=== PATIENT | female | born 1980 | race Caucasian/White ===

== ENCOUNTER → 2020-10-14 13:27 | Outpatient (BNVA) | payer OTHER, SELFPAY | PROVIDERS: Visit Provider Obstetrics & Gynecology | DX: Z76.89 Persons encountering health services in other specified circumstances (principal) ==

== ENCOUNTER 2020-10-18 15:47 | Outpatient (REF) | payer OTHER, SELFPAY ==
[2020-10-19 07:27] LABS: COVID-19 Test Negative (Negative)
== END 2020-10-18 15:48 | disposition home or self-care (01) ==
LOC: HO.EMPCOV 15:47
PROVIDERS: Visit Provider Internal Medicine
DX: Z20.822 Contact with and (suspected) exposure to COVID-19 (principal)
CPT/HCPCS: 36415; 87635; C9803

== ENCOUNTER 2020-10-22 09:35 | Outpatient (REF) | payer OTHER, SELFPAY ==
[2020-10-22 10:18] LABS: COVID-19 Test Negative (Negative)
== END 2020-10-22 09:36 | disposition home or self-care (01) ==
LOC: HO.EMPCOV 09:35
PROVIDERS: Visit Provider Internal Medicine
DX: Z20.822 Contact with and (suspected) exposure to COVID-19 (principal)
CPT/HCPCS: 36415; 87635; C9803

== ENCOUNTER 2020-10-23 09:34 | Outpatient (REF) | payer OTHER, SELFPAY ==
[2020-10-23 09:50] LABS: COVID-19 Test Negative (Negative); IDNOW Serial# 55D5AD1C
== END 2020-10-23 09:35 | disposition home or self-care (01) ==
LOC: HO.LAB 09:34
PROVIDERS: Visit Provider Internal Medicine
DX: Z20.822 Contact with and (suspected) exposure to COVID-19 (principal)
CPT/HCPCS: 36415; 87635; C9803

== ENCOUNTER 2021-01-06 13:09 | Outpatient (REF) | payer OTHER, SELFPAY ==
[2021-01-08 11:35] LABS: BV Int Neg Control Negative (Negative); BV Int Pos Control Positive (Positive)
== END 2021-01-06 13:10 | disposition home or self-care (01) ==
LOC: HO.LAB 13:09
PROVIDERS: PCP Internal Medicine; Visit Provider Obstetrics & Gynecology
DX: N89.8 Other specified noninflammatory disorders of vagina (principal); R32 Unspecified urinary incontinence
CPT/HCPCS: 87480; 87510; 87660

== ENCOUNTER 2021-01-07 12:53 | Outpatient (REF) | payer OTHER, SELFPAY | END 2021-01-07 12:54 | disposition home or self-care (01) | LOC: HO.LNP 12:53 | PROVIDERS: Visit Provider Obstetrics & Gynecology | DX: Z13.89 Encounter for screening for other disorder (principal) ==

== ENCOUNTER 2021-07-03 07:57 | Outpatient (REF) | payer OTHER, SELFPAY ==
[2021-07-03 15:39] LABS: CT PCR NOT DETECTED (Not Detect.); NG PCR NOT DETECTED (Not Detect.)
[2021-07-04 09:30] LABS: BV Int Neg Control Negative (Negative); BV Int Pos Control Positive (Positive)
== END 2021-07-03 07:58 | disposition home or self-care (01) ==
LOC: HO.LAB 07:57
PROVIDERS: PCP Internal Medicine; Visit Provider Obstetrics & Gynecology
DX: R10.2 Pelvic and perineal pain (principal)
CPT/HCPCS: 81003; 81025; 87480; 87491; 87510; 87591; 87660

== ENCOUNTER 2021-07-22 10:53 | Outpatient (REF) | payer OTHER, SELFPAY ==
--- NOTE | ~2021-07-22 | US_ITS ---
EXAMINATION: US PELVIS CLINICAL INFORMATION: US PELVIC AND TRANSVAGINAL COMPARISON: Pelvic and perineal pain. TECHNIQUE: Ultrasound of the pelvis is performed using both transabdominal and transvaginal transducers along with Doppler. Transvaginal imaging is performed due to inadequate visualization transabdominally. FINDINGS: The uterus is anteverted and retroflexed measuring 1.8 cm in length, 3.5 cm in AP, and 5.1 cm in transverse dimension. Atypical-appearing anterior fundal uterus on transabdominal ultrasound not seen on transvaginal ultrasound. The right ovary measures 3.3 x 2.4 x 2.2 cm and volume 9.0 mL. It appears unremarkable. The left ovary measures 3.6 x 2.7 x 1.8 cm and volume 9.0 mL. There is no free fluid in the cul-de-sac. US/US pelvic and transvaginal IMPRESSION: Unremarkable ovaries. Slightly atypical-appearing anterior fundal uterus on transabdominal ultrasound. However, no abnormality seen on the transvaginal exam.
== END 2021-07-22 10:54 | disposition home or self-care (01) ==
LOC: HO.US 10:53
PROVIDERS: PCP Internal Medicine; Visit Provider Obstetrics & Gynecology
DX: R10.2 Pelvic and perineal pain (principal)
CPT/HCPCS: 76830; 76856

== ENCOUNTER → 2021-07-30 15:12 | Outpatient (BNVA) | payer OTHER, SELFPAY | PROVIDERS: PCP Internal Medicine; Visit Provider Obstetrics & Gynecology ==

== ENCOUNTER 2021-08-12 15:03 | Outpatient (REF) | payer OTHER, SELFPAY ==
--- NOTE | ~2021-08-12 | MR_ITS ---
EXAMINATION: MR PELVIS WITHOUT AND WITH CONTRAST CLINICAL INFORMATION: Pelvic and perineal pain COMPARISON: 07/22/2021 pelvic ultrasound TECHNIQUE: Multiple routine MRI sequences through the pelvis were obtained on a high-field 1.5 [facility] MRI. Pre and postcontrast images were evaluated. 6 mL of Gadavist intravenous contrast was utilized without incident. FINDINGS: The uterus is anteroverted and then retroflexed approximately 90 degrees. There is a prior artifact along the anterior aspect of the mid to lower uterine wall. The junctional zone is otherwise thin and distinct. Endometrial cavity itself is unremarkable. The size is somewhat difficult to measure due to the retroflexed nature but the uterus measures approximately 8.5 x 5.1 x 5.4 cm in size. No adnexal mass seen with a tiny physiologic follicles bilaterally. Trace likely physiologic free fluid. The bladder is decompressed and unremarkable. Bowel is mostly decompressed and unremarkable. MR/MR pelvis wo/w con IMPRESSION: No acute abnormality seen. No mass lesion or adenopathy. Post changes incidentally noted.
== END 2021-08-12 15:04 | disposition home or self-care (01) ==
LOC: HO.MRI 15:03
PROVIDERS: Visit Provider Obstetrics & Gynecology
DX: R10.2 Pelvic and perineal pain (principal); D21.9 Benign neoplasm of connective and other soft tissue, unspecified
CPT/HCPCS: 72197; A9585

== ENCOUNTER → 2021-08-26 15:50 | Outpatient (BNVA) | payer OTHER, SELFPAY | PROVIDERS: PCP Internal Medicine; Visit Provider Obstetrics & Gynecology ==

== ENCOUNTER 2021-11-04 07:25 | Outpatient (REF) | payer OTHER, SELFPAY ==
--- NOTE | ~2021-11-04 | MR_ITS ---
MR CERVICAL SPINE WITHOUT IV CONTRAST CLINICAL INFORMATION: Cervical stenosis. COMPARISON: Cervical spine MRI 07/31/2020. TECHNIQUE: MRI of the cervical spine was obtained using routine sequences without contrast. FINDINGS: Cervical alignment is maintained. Vertebral body heights are preserved. Disc volumes are normal. There is no bone marrow edema. There are no acute fractures. Craniocervical junction is unremarkable. Partially imaged intracranial compartment is unremarkable. Cervical arterial flow voids are maintained. No cord signal changes. There is a partially imaged at least 0.8 cm T2 signal hyperintense structure along the medial margin of the right parotid tail that could reflect a primary parotid lesion or periparotid lymph node however exhibits higher signal than adjacent lymph nodes. Contrast-enhanced CT of the neck could be obtained for further assessment. C2-C3: Disc contour is normal. No central canal stenosis and no foraminal stenosis. C3-C4: Disc contour is normal. No central canal stenosis and no foraminal stenosis. C4-C5: Disc contour is normal. No central canal stenosis and no foraminal stenosis. C5-C6: Slight annular disc bulge. Right foraminal perineural cyst. No central canal stenosis and no foraminal stenosis. C6-C7: Shallow right paracentral disc protrusion mildly indents the ventral thecal sac. No central canal stenosis and no foraminal stenosis. C7-T1: Normal. At T2-T3, there is advanced left-sided hypertrophic facet arthropathy resulting in severe left-sided foraminal stenosis which is progressed. MR/MR cervical spine wo con IMPRESSION: - At C5-C6, there is a slight annular disc bulge and there is a right foraminal perineural cyst which are stable. At C6-C7, there is a shallow right paracentral disc protrusion that mildly indents the ventral thecal sac and the previously seen extruded component of the disc herniation has resorbed. The remaining cervical disc contours are normal. No severe central canal stenosis and no severe foraminal stenosis within the cervical spine. - Partially imaged at T2-T3, progressive advanced left-sided facet arthropathy results in worsening severe left-sided foraminal stenosis. - There is a partially imaged at least 0.8 cm T2 signal hyperintense structure along the medial margin of the right parotid tail that could reflect a primary parotid lesion or periparotid lymph node however exhibits higher signal than adjacent lymph nodes. Contrast-enhanced CT of the neck could be obtained for further assessment.
== END 2021-11-04 07:26 | disposition home or self-care (01) ==
LOC: HO.MRI 07:25
PROVIDERS: PCP Internal Medicine; Visit Provider Orthopaedic Surgery
DX: M48.02 Spinal stenosis, cervical region (principal)
CPT/HCPCS: 72141

== ENCOUNTER 2023-08-10 11:11 | Outpatient (REF) | payer OTHER, SELFPAY ==
--- NOTE | ~2023-08-10 | MM_ITS ---
EXAMINATION: MM SCREENING DIGITAL BREAST TOMOSYNTHESIS, BILATERAL CLINICAL INFORMATION: Screening. Asymptomatic. COMPARISON: Mammography: There are no prior studies for comparison. This is a baseline examination. TECHNIQUE: Digital breast tomosynthesis is performed in both the craniocaudal and mediolateral oblique views along with computer-aided detection (CAD). Synthesized 2D images are generated from the tomosynthesis. FINDINGS: The breasts are heterogeneously dense, which may obscure small masses (ACR BI-RADS breast composition Category c). There are no significant masses, abnormal calcifications, or other abnormalities. MM/MM tomosynthesis screening BI IMPRESSION: No mammographic evidence of malignancy. ASSESSMENT: BI-RADS BI-RADS 1 - Negative RECOMMENDATION: Routine annual mammography screening. 1 year F/U This examination should not preclude the clinical evaluation of a suspicious palpable abnormality. This patient's information was entered into a reminder system with a target due date for their next mammogram.
== END 2023-08-10 11:12 | disposition home or self-care (01) ==
LOC: HO.MAMMO 11:11
PROVIDERS: PCP Internal Medicine; Visit Provider Internal Medicine
DX: Z12.31 Encounter for screening mammogram for malignant neoplasm of breast (principal)
CPT/HCPCS: 77063; 77067

== ENCOUNTER → 2023-08-10 11:30 | Outpatient (BNV) | payer OTHER, SELFPAY | PROVIDERS: PCP Internal Medicine; Visit Provider Radiology Diagnostic Radiology | DX: Z12.31 Encounter for screening mammogram for malignant neoplasm of breast (principal) | CPT/HCPCS: 77063; 77067 ==

== ENCOUNTER 2023-12-07 13:28 | Outpatient (REF) | payer OTHER, SELFPAY ==
--- NOTE | ~2023-12-07 | US_ITS ---
EXAMINATION: US SOFT TISSUE OF THE NECK CLINICAL INFORMATION: Lymphadenopathy of neck. COMPARISON: None available. TECHNIQUE: Linear transducer grayscale and color Doppler examination of the right neck. FINDINGS: The cutaneous, subcutaneous, muscular and fascial planes are unremarkable. There are 5 x 2 x 3 mm and 4 x 2 x 5 mm right jugular chain reniform lymph nodes. No lymphadenopathy is seen. There is no mass or fluid collection. No foreign body is seen. Limited evaluation of the right thyroid lobe shows a diminutive appearance. US/US soft tiss head and/or neck IMPRESSION: Shotty, nonpathologically enlarged right cervical lymph nodes are seen. There is no sizable lymphadenopathy. No mass or fluid collection is seen.
== END 2023-12-07 13:29 | disposition home or self-care (01) ==
LOC: HO.US 13:28
PROVIDERS: PCP Internal Medicine; Visit Provider Internal Medicine
DX: R59.9 Enlarged lymph nodes, unspecified (principal)
CPT/HCPCS: 76536

== ENCOUNTER 2024-08-01 10:12 | Outpatient (REF) | payer OTHER, SELFPAY ==
--- NOTE | ~2024-08-01 | XR_ITS ---
EXAMINATION: XR THORACIC SPINE CLINICAL INFORMATION: Cervalgia COMPARISON: None available. TECHNIQUE: 3 views of the thoracic spine were obtained. FINDINGS: There is no fracture or bone destruction seen and the vertebral alignment is normal. There is no disc space narrowing. There is no abnormality of the paraspinal soft tissues. XR/XR thoracic spine 3V IMPRESSION: No fracture or dislocation. Electronically signed by: Rey Rodriguez MD 08/01/2024 12:30 PM EDT
--- NOTE | ~2024-08-01 | XR_ITS ---
EXAMINATION: XR CERVICAL SPINE CLINICAL INFORMATION: Cervalgia COMPARISON: None available. TECHNIQUE: 5 views frontal lateral both obliques and open-mouth odontoid view. FINDINGS: The vertebral alignment is normal. No intrinsic bony abnormality. The disc heights and neural foramina are well maintained. The endplates and posterior elements are normal. No fracture or subluxation. The surrounding prevertebral soft tissues are unremarkable. XR/XR cervical spine 5V IMPRESSION: No osseous changes to explain patient's pain symptoms, MRI could be utilized to assess for possible soft tissue derangement including disc herniations if clinically indicated. Electronically signed by: Rey Rodriguez MD 08/01/2024 12:32 PM EDT
== END 2024-08-01 10:13 | disposition home or self-care (01) ==
LOC: HO.XRAY 10:12
PROVIDERS: Visit Provider Nurse Practitioner Family
DX: M54.2 Cervicalgia (principal); M54.6 Pain in thoracic spine
CPT/HCPCS: 72050; 72072

== ENCOUNTER 2024-08-22 15:42 | Outpatient (REF) | payer OTHER, SELFPAY ==
--- NOTE | ~2024-08-22 | US_ITS ---
EXAMINATION: US THYROID CLINICAL INFORMATION: Parotid mass. COMPARISON: Cervical spine MRI dated 11/04/2021. TECHNIQUE: Linear transducer fountain-scale and color Doppler examination with attention to the region of the right and left parotid glands. FINDINGS: The parotid glands are homogeneous with normal echogenicity. No increased Doppler detectable vascular flow. There are benign-appearing intraparotid lymph nodes bilaterally measuring up to 0.5 cm on the right and 0.5 cm on the left. No pathologic-appearing lymph node. No parotid gland mass or organized fluid collection. No shadowing stone. US/US soft tiss head and/or neck IMPRESSION: Unremarkable examination. Electronically signed by: Blair Mijares MD 08/23/2024 09:43 AM [facility]
== END 2024-08-22 15:43 | disposition home or self-care (01) ==
LOC: HO.US 15:42
PROVIDERS: Visit Provider Family Medicine
DX: K11.8 Other diseases of salivary glands (principal)
CPT/HCPCS: 76536

== ENCOUNTER 2024-08-23 13:16 | Outpatient (REF) | payer OTHER, SELFPAY ==
--- NOTE | ~2024-08-23 | MM_ITS ---
EXAMINATION: MM SCREENING DIGITAL BREAST TOMOSYNTHESIS, BILATERAL CLINICAL INFORMATION: Screening. Asymptomatic. COMPARISON: Mammography: Comparison is made with available priors TECHNIQUE: Digital breast mammography with tomosynthesis is performed in both the craniocaudal and mediolateral oblique views along with computer-aided detection (CAD). FINDINGS: The breasts are heterogeneously dense, which may obscure small masses (ACR BI-RADS breast composition Category c). There are no significant masses, abnormal calcifications, or other abnormalities. MM/MM tomosynthesis screening BI IMPRESSION: No mammographic evidence of malignancy. ASSESSMENT: BI-RADS BI-RADS 1 - Negative RECOMMENDATION: Routine annual mammography screening. 1 year F/U This examination should not preclude the clinical evaluation of a suspicious palpable abnormality. This patient's information was entered into a reminder system with a target due date for their next mammogram. Electronically signed by: Eileen Warren DO 08/23/2024 03:05 PM [facility]
== END 2024-08-23 13:17 | disposition home or self-care (01) ==
LOC: HO.MAMMO 13:16
PROVIDERS: PCP Internal Medicine; Visit Provider Internal Medicine
DX: Z12.31 Encounter for screening mammogram for malignant neoplasm of breast (principal)
CPT/HCPCS: 77063; 77067

== ENCOUNTER → 2024-08-23 13:30 | Outpatient (BNV) | payer OTHER, SELFPAY | PROVIDERS: PCP Internal Medicine; Visit Provider Internal Medicine | DX: Z12.31 Encounter for screening mammogram for malignant neoplasm of breast (principal) | CPT/HCPCS: 77063; 77067 ==

== ENCOUNTER 2024-08-24 18:32 | Outpatient (REF) | payer OTHER, SELFPAY | END 2024-08-24 18:33 | disposition home or self-care (01) | LOC: HO.MRI 18:32 | PROVIDERS: PCP Internal Medicine; Visit Provider Family Medicine | DX: R29.2 Abnormal reflex (principal); R20.2 Paresthesia of skin; M51.369 Other intervertebral disc degeneration, lumbar region without mention of lumbar back pain or lower extremity pain; M79.601 Pain in right arm; M79.602 Pain in left arm; M50.33 Other cervical disc degeneration, cervicothoracic region | CPT/HCPCS: 72141; 72148 ==

== ENCOUNTER 2025-01-16 07:00 | Outpatient (RCR) | payer OTHER, SELFPAY | END 2025-03-07 13:18 | disposition home or self-care (01) | LOC: HO.PT 07:00 | PROVIDERS: PCP Internal Medicine; Visit Provider Internal Medicine | DX: M54.2 Cervicalgia (principal); M51.369 Other intervertebral disc degeneration, lumbar region without mention of lumbar back pain or lower extremity pain | CPT/HCPCS: 97110; 97140; 97161; 97530 ==

== ENCOUNTER 2025-03-21 07:14 | Outpatient (REF) | payer OTHER, SELFPAY ==
--- OUTSIDE RECORDS SUMMARY | 2025-03-21 07:18 | XMS_ITS | Data Portability ---
Author Organization [facility], [facility] Address [address] [place] [address] Care Team Providers Care Professor Of Exercise Science Name Role Phone ALBERTO LINDA OTHER [facility] OBGYN OTHER [phone] JLUIS BALDERRAMA OTHER [facility] Primary Care Provider Assessment Encounter Date Assessment Date Assessment LastModified by Organization Details LastModified Time 07/25/2020 07/25/2020 Hypothyroid on 112 mcg. Had decrease in TSH post- (2016) and improvement with dose adjustment. 2019: TSH slightly increasing. 2020: TSH stable. Still trying for . [email or web address] Not available 07/25/2020 11:03:55 12/27/2020 12/27/2020 Patient agreed to this visit via a secure telehealth platform due to the COVID -19 pandemic. Patient understands this is a scheduled visit and the usual procedures with regard to billing and confidentialit y apply. Patient was notified that the provider location is home Patient location: home During the visit the patient s medical history and medical record were reviewed. The patient was notified to call our office for worsening or urgent symptoms. [email or web address] Not available 12/27/2020 16:25:14 11/27/2021 11/27/2021 Hypothyroid on 112 mcg. Had decrease in TSH post- (2016) and improvement with dose adjustment. 2019: TSH slightly increasing. 2020: TSH stable. Still trying for . 2021: TSH towards LLN. Better about keeping distant from bkfst. Try back at 112 daily (was 7.5/7) and see if TSH rises a bit more. [email or web address] Not available 11/27/2021 10:39:40 Plan of Treatment Reminders Order Date Submit Date Provider Last Modified By Organization Details Last Modified Time Details Appointments None recorded. Lab hepatitis C virus Ab, serum 2020 021 [facility], [address] [place] [address], [id number], 1 12:21:40 TSH, serum or plasma 2019 020 [facility], [address] [place] [address], [id number], 0 13:51:10 T4, free, serum 2019 020 [facility], [address] [place] [address], [id number], 0 16:04:35 T4, free, serum 2019 021 [facility], [address] [place] [address], [id number], 2 15:30:40 TSH, serum or plasma 2019 021 [facility], [address] [place] [address], [id number], 2 15:30:20 T4, free, serum 2020 022 [facility], [address] [place] [address], [id number], 2 15:30:40 TSH, serum or plasma 2020 022 [facility], [address] [place] [address], [id number], 2 15:30:20 Referral None recorded. Procedures None recorded. Surgeries None recorded. Imaging None recorded. Medication Orders Macrobid 100 mg capsule [address]/Pharmacy [facility][id number], [address] [place], [address], 2 09:56:59 Patient TargetsNo targets recorded. Patient Instructions Encounter Date Encounter Id Patient Instructions Last Modified By Organization Details Last Modified Time 04/24/2020 [id number] After a discussion of treatment and medication options, which included consideration of the best practices in medicine, a medical plan was provided. The patient's opinions and concerns were included in this treatment plan and goal. Things you can do to lower your risk of COVID-19 and help slow the spread of the virus -Get plenty of rest -Eat a healthy diet, with lots of fruits and vegetables -Get 7-8 hours of sleep per night -Make sure you are doing some type of exercise inside your house or outside (not in groups) -Maintain 6 feet distance from friends/ family -Wash your hands frequently for 20 seconds and or use Purell -Do not touch your face, eyes, nose, mouth -Cover your mouth and nose with a tissue when sneezing and coughing or sneeze and cough into your sleeve. Throw the tissue in the trash. Wash your hands afterward. Never cough or sneeze into your hands. -Clean frequently used surfaces (such as doorknobs an counter tops) with a virus-killing disinfectant. -Call with any concerns. [email or web address] Not available 04/23/2020 10:28:33 07/25/2020 [id number] - Get labs done - Continue taking thyroid hormone every day away from other food and especially from other minerals like calcium (dairy), iron, magnesium, etc. - Contact office if any symptoms of low thyroid (excess fatigue, unexplained weight gain, feeling much more cold than usual, constipation, very dry skin) or excess thyroid (heart racing, unexplained weight loss, feeling jittery/nervous/ anxious, change in frequency of moving bowels, tremors, or insomnia) - Contact office if/when you are . OK to take one extra pill per week (total of 8 pills per week) as soon as you find out about being . [email or web address] Not available 07/25/2020 11:06:05 one year - 20 minutes [email or web address] Not available 07/25/2020 11:06:19 12/27/2020 [id number] Treating for presumed urinary tract infection Take antibiotics as directed Will call if any change needed based on culture which usually takes 24-48 hours Drink plenty of fluids, cranberry juice can improve symptoms by changing urine pH. Ibuprofen for pain/fevers as needed, 600 mg 3 times a day with food Return to office if any worsening symptoms or concerns Females remember antibiotics can change/decrease the effectiveness of control, you should use a back up method such as condoms for 2 weeks following antibiotic use [email or web address] Not available 12/27/2020 16:25:30 11/27/2021 [id number] - Get labs done every 3 months. - Continue taking thyroid hormone every day away from other food and especially from other minerals like calcium (dairy), iron, magnesium, etc. - Contact office if any symptoms of low thyroid (excess fatigue, unexplained weight gain, feeling much more cold than usual, constipation, very dry skin) or excess thyroid (heart racing, unexplained weight loss, feeling jittery/nervous/ anxious, change in frequency of moving bowels, tremors, or insomnia) - Contact office if/when you are . OK to take one extra pill per week (total of 8 pills per week) as soon as you find out about being . [email or web address] Not available 11/27/2021 10:39:33 one year - 20 minutes. [email or web address] Not available 11/27/2021 10:39:38 Reason for Referral None Reported. Results Created Date Observation Date Name Description Value Unit Range Abnormal Flag Note LastModifiedBy Organization Detail LastModifiedTime 05/31/2006/03/2020 T4, free, serum free T4 1.49 NG/dL 0.75-1 .54 Not Available [address], [address], 06/03/2020 11:28:30 05/31/2006/03/2020 TSH, serum or plasm a TSH 3.47 uIU/m L 0.50-6 .00 [facility] and [facility] i[facility] n recom mend goal TSH value s betwe en 0.4-4 .0 mIU/m L. Not Available [address], [address], 06/03/2020 11:28:31 09/02/2009/02/2020 T4, free, serum free T4 1.62 NG/dL 0.75-1 .54 high Not Available [address], [address], 09/02/2020 16:04:34 09/02/20 20 09/03/2020 TSH, serum or plasm a TSH 4.02 uIU/m L 0.50-6 .00 [facility] and [facility] i[facility] n recom mend goal TSH value s betwe en 0.4-4 .0 mIU/m L. Not Available [address], [address], 09/03/2020 13:51:10 02/29/20 21 03/04/2021 hepat itis C virus Ab, serum hepatitis C antibody NON-RE ACTIVE non-re active normal Not Available [facility] [address], [address], 03/04/2021 12:21:40 02/29/20 21 03/04/2021 hepat itis C virus Ab, serum index 0.01 <1.00 normal HCV antib emmanuel was non-r eacti ve. There is no labor atory evide nce of HCV infec tion. In most cases , no furth er actio n is requi red. Howev er, if recen t HCV expos ure is suspe cted, a test for HCV RNA (test code 07744 ) is sugge sted. For addit ional infor issac corona pleas e refer to http: //[facility] kristine corona.efe stdia gnost ics.c om/fa q/FAQ 22v1 (This link is being provi ded for infor issac torres/ educa roxana l purpo ses only. ) Not Available [facility] [address], [address], 03/04/2021 12:21:40 02/29/20 21 03/04/2021 T4, free, serum free T4 1.32 NG/dL 0.75-1 .54 Not Available [address], [address], 03/04/2021 14:08:42 02/29/20 21 03/04/2021 TSH, serum or plasm a TSH 0.48 uIU/m L 0.50-6 .00 low [facility] and [facility]ro id Assoc iatio n recom mend goal TSH value s betwe en 0.4-4 .0 mIU/m L. Not Available [address], [address], 03/04/2021 14:08:43 11/12/19 22 11/12/2021 FREE T4 free T4 1.53 NG/dL 0.75-1 .54 Not Available [address], [address], 11/12/2021 15:05:35 11/12/19 22 11/12/2021 TSH TSH 0.55 uIU/m L 0.50-6 .00 [facility] and [facility] id Ass[facility] iatio n recom mend goal TSH value s betwe en 0.4-4 .0 mIU/m L. Not Available [address], [address], 11/12/2021 16:00:27 Result Notes None recorded. Problems Name Problem SNOMED Code Status Onset Date Resolution Date Notes Provider Name and Address Organization Details Recorded Time Palpitat ions 56999866 Active neg ekg ~06/2013 w/ prior pcp, awaiting records (not received as of 02/2014, t/c repeat if needed) Macrina Dorado NP [address] [place], [place] [address] [place], [address], [facility] 5 11:02:26 Headache 30886730 Active Macrina Dorado NP [address] [place], [place] [address] [place], [address], [facility] 5 11:02:26 Asthma 825114242 Completed 03/11/2018 mild intermitt ent Shruthi Arciniega, [employer]TER [address] [place] [address], [phone], [facility] 8 15:08:36 Fatigue 83233357 Active Macrina Jimenez Elviscorine, POULTRY PICKER [address] [place] [address], [phone], [facility] 5 11:02:26 Hypothyr oidism 33742538 Active Chanel Glass null, [facility] 6 14:30:14 Wheezing 41283965 Active 2017 Shruthi Suze, [address] C[address], [address], [facility] 8 15:08:43 Problem Notes None recorded. Procedures Surgical History Date Name Laterality Status Provider Name and Address Organization Details Recorded Time 10/06/19 23 Refraction completed Debbi Griffin, OD [address] [place] [address], [phone], [facility] 10/06/2022 14:37:05 12/08/19 20 POC Urinalysis Testing completed Aurelia Ny [facility] [place] 12/08/2019 14:50:16 07/21/20 19 POC Strep Testing completed Artie Moura [facility] 07/21/2019 14:40:20 01/03/20 19 umbilical hernioplasty completed Rowena Diaz PA-C [address] [place] [address], [phone], [facility] 07/21/2019 15:03:20 06/09/20 18 Refraction completed Angélica Romo [facility] 06/09/2018 15:00:37 03/11/20 18 Asthma Control Test (12 + years old) completed Josette Magdaleno LPN [facility] 03/11/2018 14:41:50 02/24/20 17 Asthma Control Test (12 + years old) completed China Mcknight [facility] [place] 02/23/2017 11:16:38 01/10/20 17 POC Strep Testing completed Misa Avila [facility] 01/09/2017 12:26:32 12/14/19 17 completed Genesis Blackwell LPN [facility] 03/25/2017 15:29:57 08/18/20 16 Asthma Control Test (12 + years old) completed China Mcknight CMA [facility] 08/18/2016 15:43:16 08/01/20 15 Asthma Control Test (12 + years old) completed China Mcknight [facility] [place] 08/01/2015 08:29:37 Imaging Results None recorded. Procedure Notes None recorded. Medical Equipment None Reported. Allergies Allergen ID Allergen Name Allergen Category Reaction Reaction Severity Criticality Documentation Date Start Date Code Code System Note Provider Name and Address Organization Details Recorded Time 247728 Substance with sulfonami de structure and antibacte rial mechanism of action (substanc e) medicatio n rash moderate Not available 07/24/2013 16171 8003 [facility]ED [facility] 08:33:33 798926 ibuprofen medicatio n rash mild Not available 07/24/2013 5640 RxNorm [facility] 3 08:33:33 Medications Name Sig Start Date Stop Date Status Note LastModified by Organization Details LastModified Time levothyroxi ne sodium 88 mcg tabs 08/18 completed Not Available Not Available Not Available trinessa tab active Not Available Not Available Not Available levothyroxi n tab 75mcg active Not Available Not Available Not Available fluconazole 100 mg tablet 08/23 completed Not Available Not Available Not Available prednisone 10 mg tablet 02/06 completed Not Available Not Available Not Available clindamycin HCl 300 mg capsule take 1 capsule by mouth every 8 hours 03/25 completed Not Available Not Available Not Available minocycline 100 mg capsule TK 1 C PO Q 12 H FOR 10 DAYS active Not Available Not Available No t Available penicillin V potassium 500 mg tablet take 1 tablet by mouth every 8 hours for 10 days active Not Available Not Available No t Available triamcinolo ne acetonide 0.1 % topical cream APPLY TO AFFECTED AREA TWICE A DAY active Not Available Not Available No t Available levothyroxi ne 25 mcg tablet 112.5mcg (one 100mcg tab and 1/2 25mcg tab) by mouth once daily 08/23 completed Not Available Not Available Not Available levothyroxi ne 75 mcg tablet TK 1 T PO QD active Not Available Not Available No t Available levothyroxi ne 100 mcg tablet take 1 tablet by mouth once daily with A 1/2 TABLET OF 25MCG TABLET TO EQUAL 112MCG 08/23 completed Not Available Not Available Not Available levothyroxi ne 88 mcg tablet take 1 tablet by mouth once daily 08/18 completed Not Available Not Available Not Available amoxicillin 875 mg tablet take 1 tablet by mouth twice a day 03/25 completed Not Available Not Available Not Available benzonatate 100 mg capsule TAKE 1 CAPSULE BY MOUTH 2-3 TIMES A DAY NEEDED FOR COUGH active Not Available Not Available No t Available oseltamivir 75 mg capsule TAKE 1 CAPSULE BY MOUTH TWICE A DAY FOR 5 DAYS active Not Available Not Available No t Available levothyroxi ne 125 mcg tablet 1 tablet Once a day Orally 30 day(s) 05/07 completed Not Available Not Available Not Available tobramycin 0.3 % eye drops INSTILL 1 DROP INTO AFFECTED EYE(S) BY OPHTHALMI C ROUTE EVERY 2 hrs today, then every 4 hrs from tomorrow 08/18 completed Not Available Not Available Not Available clotrimazol e-betametha sone 1 %-0.05 % topical cream 08/30 completed Not Available Not Available Not Available docusate sodium 100 mg capsule TAKE ONE CAPSULE BY MOUTH TWICE A DAY FOR 10 DAYS USE FOR CONSTIPAT ION 01/09 completed Not Available Not Available Not Available gabapentin 100 mg capsule TAKE 1 CAPSULE BY MOUTH IN THE MORNING AND AFTERNOON WITH 2-3 CAPSULE IN THE PM 11/27 completed Not Available Not Available Not Available ondansetron 4 mg disintegrat ing tablet 07/21 completed Not Available Not Available Not Available fluticasone propionate 50 mcg/actuati on nasal spray,suspe nsion Inhale 2 sprays every day by intranasa l route. 08/18 completed Not Available Not Available Not Available levothyroxi ne 112 mcg tablet TAKE 1 TABLET BY MOUTH EVERY MORNING EXCEPT TAKE 2 TABLETS ON SATURDAYS active Not Available Not Available No t Available amoxicillin 875 mg-potassiu m clavulanate 125 mg tablet TAKE 1 TABLET BY MOUTH TWICE A DAY active Not Available Not Available No t Available oxycodone 5 mg tablet 01/09 completed Not Available Not Available Not Available neomycin-po lymyxin-hyd rocort 3.5 mg-10,000 unit/mL-1 % ear drops,susp INSTILL 4 DROPS INTO AFFECTED EAR(S) 3 TIMES A DAY 07/25 completed Not Available Not Available Not Available azithromyci n 500 mg tablet 07/21 completed Not Available Not Available Not Available TriNessa (28) 0.18 mg(7)/0.215 mg(7)/0.25 mg(7)-35 mcg tablet take 1 tablet by mouth once daily 08/30 completed Not Available Not Available Not Available nitrofurant oin monohydrate /macrocryst als 100 mg capsule Take 1 capsule every 12 hours by oral route for 7 days. 11/27 completed Not Available Not Available Not Available levothyroxi ne dose unknow active Not Available Not Available No t Available ProAir HFA 90 mcg/actuati on aerosol inhaler TAKE 2 PUFFS BY MOUTH INTO THE LUNGS EVERY 4 TO 6 HOURS NEEDED. active Not Available Not Available No t Available Pain and Fever 500 mg tablet TAKE 1 TABLET BY MOUTH EVERY 4 HOURS NEEDED FOR PAIN FOR 10 DAYS 03/25 completed Not Available Not Available Not Available Sharobel 0.35 mg tablet Take 1 tablet every day by oral route. 03/11 completed Not Available Not Available Not Available Vitals Date Recorded Body height Body mass index (BMI) Body weight Heart rate Systolic blood pressure Diastolic blood pressure Provider Name and Address Organization Details Last Updated DateTime 2 162.56 cm 22 kg/m2 37830.8 2 g 60 /min 96 mm[Hg] 62 mm[Hg] Rae Ty RN [facility] 2 10:03:33 Date Recorded Body height Body mass index (BMI) Body weight Provider Name and Address Organization Details Last Updated DateTime 12/27/2020 162.56 cm 22.3 kg/m2 94191.01 g Anh Brooke MA [facility] 12/27/2020 15:49:29 Date Recorded Body height Provider Name an d Address Organization Details Last Updated DateTime 04/24/2020 162.56 cm Carlos Sanches CMA [facility] 04/24/2020 10:52:29 Social History Question Answer Notes LastModified by Organization Details LastModified Time Tobacco Smoking Status Never Smoker CADENCE Dolan, [facility] 07/24/2013 08:34:56 Do You Wear A Helmet When Biking? Yes Skiing And Biking Information not available 02/12/2014 What Is Your Level Of Caffeine Consumption? Occasional Rare Information not available 02/12/2014 What Type Of Diet Are You Following? REGULAR Information not available 07/24/2013 Which Illicit Or Recreational Drugs Have You Used? Denies Information not available 11/27/2021 Education Post Graduate [employer] [place] Information not available 07/24/2013 Are There Any Guns Present In Your Home? No Information not available 07/24/2013 Live Alone Or With Others? With Others Information not available 02/12/2014 Patient Has Health Care Proxy Signed And In Chart No Singh Armstrong [email or web address] Information not available 08/24/2018 Marital Status Singh Armstrong Also Hcp; Middle Name [place] Information not available 07/24/2013 What Was The Date Of Your Most Recent Tobacco Screening? 12/27/2020 [email or web address] Information not available 12/27/2020 How Many Children Do You Have? 1 Agustus 12/13/16 Philip Information not available 08/18/2016 Seat Belts Used Routinely Yes Information not available 02/12/2014 Are You Sexually Active? Yes Information not available 07/24/2013 Smoke Alarm In Home Yes Information not available 07/24/2013 General Stress Level Medium Exams Can Be Stressful Information not available 07/24/2013 Do You Use Sunscreen Routinely? Yes Information not available 07/24/2013 Sex: Unknown Functional Status Question Answer Note LastModified by Organizat ion Details LastModified Time Do you use any illicit or recreational drugs? No Information not available 11/27/2021 Do you or have you ever used any other forms of tobacco or nicotine? No Information not available 11/27/2021 What is your level of alcohol consumption? 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 Family History Relationship Description Onset Age of this Age Resolved Age Notes LastModified by Organization Details LastModified Time Mother Malignant tumor of thyroid gland nos Not available 02/07 10:48:39 Mother Gastroparesi s syndrome Not available 04/2016 10:48:39 Mother Allergy [email or web address] Not availabl e 02/08/2016 10:48:39 Mother Hypothyroidi sm [email or web address] Not available 02/07 10:48:39 Mother Raynaud's disease [email or web address] Not available 2016 15:45:32 Father Benign hypertension [email or web address] Not available 10:48:39 Father Hyperlipidem ia [email or web address] Not available 02/07 10:48:40 Father Cerebrovascu lar accident 70 no residu al defici ts [email or web address] Not available 02/08/2016 10:48:40 Notes:No breast cancer, no s udden cardiac and no colon cancer Parents alive OK. Mom is Gaviota Singer (thyroid). Older brother and sister- sister has thyroid. 07/23: No changes. 11/25: Mom is OK. sibs OK. Sister has Sjogrens. 5 y.o. son. Medical History No medical history recorded. Gynecological History Statement/Question Response Menses Monthly Y Duration of Flow (days) 4 History of Abnormal Pap N Age at Menarche 15 Date of LMP 07/17/2013 Obstetrics History GPAL:G 0 P 0 0 0 0 Immunizations Vaccine Type Date Status Note Provider Nam e and Address Organization Details Recorded Time Influenza, split virus, quadrivalent, PF 4 completed Not Available [facility] 10/21/2019 02:19:21 Influenza, split virus, quadrivalent, PF 5 completed Not Available [facility] 10/21/2019 02:19:51 Tdap 8 completed Julienne Ellis M.D. [address] [place] [address], [phone], [facility] 02/13/2014 14:50:55 influenza, unspecified formulation 2 completed [facility] 15:10:03 Hep B, unspecified formulation 2 completed [facility] 03/01/2014 15:10:04 Hep B, unspecified formulation 3 completed [facility] 03/01/2014 15:10:04 MMR 4 [facility] 03/01/2014 15:10:04 Hep B, unspecified formulation 2 completed [facility] 03/01/2014 15:10:04 Td(adult) unspecified formulation 8 completed Kristina Chao [facility] 03/01/2014 15:10:04 influenza, unspecified formulation 3 completed Julienne Ellis M.D. [address] [place] [address], [phone], [facility] 05/29/2014 11:24:22 influenza, unspecified formulation 7 completed China Mcknight CMA [facility] 08/23/2017 09:26:51 Td (adult), 2 Lf tetanus toxoid, preservative free, adsorbed 9 completed Not Available [facility] 10/21/2019 02:36:31 influenza, unspecified formulation 8 completed [facility] 08/30/2018 14:44:59 Influenza, split virus, quadrivalent, preservative 9 completed Carlos Sanches CMA null, [facility] 11/10/2019 09:52:15 Influenza, split virus, quadrivalent, preservative 9 completed Mariam Bright LPN [facility] 12/14/2019 09:56:26 Influenza, split virus, quadrivalent, preservative 0 completed Loretta Villar [employer] [address] [place], [address], [facility] 07/25/2020 10:42:09 COVID-19, mRNA, LNP-S, PF, 30 mcg/0.3 mL dose 0 completed Rae Ty RN null, [facility] 11/27/2021 09:58:35 COVID-19, mRNA, LNP-S, PF, 30 mcg/0.3 mL dose 1 completed Rae Ty RN null, [facility] 11/27/2021 09:58:39 COVID-19, mRNA, LNP-S, PF, 30 mcg/0.3 mL dose 1 completed Rae Ty RN null, [facility] 11/27/2021 09:58:45 Past Encounters Encounter ID Performer Location Encounter Start Date Encounter Closed Date Diagnosis/Indication Diagnosis SNOMED-CT Code Diagnosis ICD10 Code Diagnosis Note [id number] Julienne LITTLE, [facility], OFFICE [address] [place] [address] 07/24/2013 08:18:12 07/24/2013 09:14:13 Adult health examination [id number] see Risk Assessment and Lifestyle Change Counseling section above Counseling [id number] Hypothyroidism 41062267 with hair loss, fatigue and headaches may need adjustment per pt never diagnosise d w/ corrine' s will check tpo awaiting prior labs as well Fatigue 00306258 Headache 36001067 school ing is new and hasn't gotten new prescripti on for glasses likely typical tension aggarwal but to call if symptoms do not improved encouraged otc ibuprofen over tylenol as a better analgesic take with food Asthma 995085476 trigger uri never on prednisone on alb inhaler Palpitations 32701083 de crease caffeine as tolerated sleep hygiene, balanced meals will review prior records call if symptoms worsen likely stress in setting of schooling [id number] Julienne LITTLE, [facility], OFFICE [address] [place] [address] 02/12/2014 14:37:23 02/12/2014 15:35:52 Counseling [id number] extensive counseling today w/ >10 min due for cmp and lipids as no records, can obtain q10 years if needed Hypothyroidism 81901138 tsh wnl 07/2013 but ~4 and thinking of conceiving in the next year goal for conceiving 2.5, therefore may need dose adjustment pharmacist called to confirm her dose w/ pt in room as she was not sure 02/16/2014 addendum TSH = 4, t/c dose adjustment Palpitations [id number] brown kunz stress in setting of schooling has improved w/ less caffeine Asthma [id number] trigger uri never on prednisone on alb inhaler very well controlled may consider pneumovax but since so well controlled , can wait for now utd w/ flu shot Lymphadenopathy 77131441 1 month follow up of [address], likely reactive recheck cbc now close monitoring as mother did have a thyroid malignancy both LN are subcm, nontender today (she noted can be tender), mobile [id number] Julienne LITTLE, [facility], OFFICE [address] [place] [phone] 6 05/29/2014 11:09:47 05/29/2014 13:41:54 Eruption [id number] mild folliculit is from heat rash vs mild infection will likely clear with time but can use top Neosporin; does not look like scabies pt preference is to see a derm for full skin check as well [id number] Julienne LITTLE, [facility], OFFICE [address] [place] [address] 6 09/19/2014 15:29:31 09/19/2014 16:00:08 Influenza vaccine needed [id number] 106 Mass of neck 901552044 [age] yo healthy F w/ hypothyroi dism w/ 7 mo of mass R cervical chain mass ~2sgx4sg if not ~1cm now; cbc wnl, eval for suspicious features please. area was marked by pcp 09/19/14 Hypothyroidism 98573081 06/2014 TSH 1.2 for preparatio n Counseling [id number] ext ensive counseling today w/ >10 min [id number] Celeste Castillo PA-C , [facility], OFFICE [address] [place] [phone] 6 10/03/2014 11:55:08 10/03/2014 14:02:21 Abscess [id number] MD ANABEL Wolff, [facility], OFFICE [address] [place] [address] 6 08/01/2015 08:11:44 08/01/2015 08:58:06 Intrinsic asthma 724909026 J45.20 INTERMITTE NT Asthma- Based on history, physical assessment and peak flow the patients asthma is in control. Will continue the present medication s and follow-up in 6 months. The asthma action plan has been discussed. The patient verbalizes understand ing medication use.. The patient is in agreement with this plan. Counseling 702912900 Z71 .9 Adult heal th examination 557758530 Z00.00 see Risk Assessment and Lifestyle Change Counseling section above Active or passive immunization 839066472 Z23 Hypothyroidism 04067669 E03.9 [id number] Macrina Dorado NP , [facility], OFFICE [address] [place] [address] 10/01/2015 10:09:47 10/01/2015 10:59:57 Streptococcal sore throat 74925356 J02.0 Finish antibiotic s even if you are feeling better before the end of the course. You may return to work or school 24 hours after starting antibiotic s. Recommend supportive care with warm salt water gargles, lozenges, tea and honey. Return to clinic if develop difficulty swallowing , throat or neck swelling, or severe pain. Good hygiene with careful hand washing and avoiding sharing utensils and food will prevent contagion. - rapid strep positive. throat culture sent due to issue with controls not run on rapid strep machine [id number] Cristela Owens MD , [facility], OFFICE [address] [place] [address] 02/08/2016 09:28:24 02/08/2016 10:00:40 Acute conjunctivitis 37074103 H10.31 Upper resp iratory infection 20980591 J06.9 [id number] Bessie Yoo MD , [facility], OFFICE [address] [place] [address] 08/18/2016 15:31:47 08/18/2016 16:14:28 Adult health examination 979737973 Z00.00 see Risk Assessment and Lifestyle Change Counseling section above Counseling 252846298 Z71 .9 Hypothyroidism 80148849 E03.9 42829636 Z33.1 [id number] DESIREE Aguirre , [facility], OFF[address] [place] [address] 01/09/2017 12:04:25 01/09/2017 13:03:05 Acute upper respiratory infection 10122375 J06.9 [id number] Bessie Yoo MD , [facility], OFFICE [address] [place] [phone] 6 02/23/2017 11:05:47 02/23/2017 16:42:34 Intrinsic asthma 895291422 J45.20 INTERMITTE NT Asthma- Based on history, physical assessment and peak flow the patients asthma is in control. Will continue the present medication s and follow-up in 6 months. The asthma action plan has been discussed. The patient verbalizes understand ing medication use.. The patient is in agreement with this plan. Counseling 821927926 Z71 .9 Screening for malignant neoplasm of cervix 040642987 Z12.4 [id number] MD ANABEL London, [facility], OFFICE [address] [place] [address] 03/01/2017 09:10:53 03/01/2017 09:34:45 Mastitis 34757827 N61.0 Patient presents with left breast mastitis. Not breast feeding currently, but bottle feeding pumped milk. Recommend to treat with Clindamyci n 300 mg PO tid for 7 days (due to Sulfa allergy). Cold compress recommende d. Extruded breast milk will be sent out for bacterial culture. Advised to contact the clinic with any worsening symptoms. Indication s for UC/ER use discussed. [id number] Yifan Carrera MD Endocrino jane, [facility] [address] [place] [address] 03/25/2017 14:49:27 03/26/2017 07:36:05 Hypothyroidism 72933669 E03.9 -levothyro xine 125mcg by mouth once daily-if tsh normal, continue current dose, repeat tsh in 6mo-if tsh high or low, adjust levothyrox ine via the portal, repeat tsh in 3mo or sooner if symptom changes-cl inic 25weeks [id number] MD ANABEL Wolff, [facility], OFFICE [address] [place] [phone] 6 04/13/2017 16:09:04 04/14/2017 11:03:47 Umbilical hernia 740465017 K42.9 [id number] Bessie Yoo MD , [facility], OFFICE [address] [place] [address] 6 08/23/2017 09:11:49 08/23/2017 10:00:24 Adult health examination 362212573 Z00.00 see Risk Assessment and Lifestyle Change Counseling section above Hypothyroidism 53187853 E03.9 TSH WNL, recheck 3 months and FU with Dr Carrera as planned. Contraception care 73228 5005 Z30.40 [id number] MD ANABEL Wolff, [facility], OFFICE [address] [place] [address] 6 03/11/2018 14:31:50 03/11/2018 17:08:34 Counseling 493982526 Z71.9 Wheezing 94995443 R06.2 Stable. occasional ProAir use with URIs. Denies sxs at this time. Will contact clinic if new Rx for ProAir is needed. Hypothyroidism 02190129 E03.9 Stable, 08/20. Repeat 1 week before next wellness exam 08/30/2018 . [id number] Debbi Griffin, OD [facility], [facility] [address] [place] [address] 06/09/2018 14:35:32 06/09/2018 15:42:58 Myopia 87587209 H52.13 RTC 1-2 yrs CEE or prn Ophthalmic examination and evaluation 55741298 Z01.00 can use Zaditor 1-2 x day for itch and redness prn [id number] MD ANABEL Wolff, [facility], OFFICE [address] [place] [phone] 6 08/30/2018 14:38:40 08/30/2018 15:26:21 Adult health examination 414407175 Z00.00 see Risk Assessment and Lifestyle Change Counseling section above Counseling 561461833 Z71 .9 Depression screening 171 921268 Z13.89 depression screening tool administer ed, entered into emr, scored and discussed, time greater than 7.5 minutes, negative screening discussed. [id number] Xochilt LITTLE, [facility], OFFICE [address] [place] [address] 6 09/22/2018 17:28:03 09/23/2018 09:04:07 Acute upper respiratory infection 16617490 J06.9 Educated patient that URI is a viral illness of the upper airways. It is not bacterial and does not benefit from antibiotic s. Average duration of URI is 7-10 days but in a recent trial, treatment at 7-10 days of illness with antibiotic s, intranasal steroids, or placebo did not alter natural history at 3 weeks. Recommende d symptomati c treatments including NSAIDS, semi-uprig ht sleep position, antihistam luke at HS, limited course of decongesta nts and/or cough syrups, and nasal saline rinses with soft squeeze bottle or Neti pot. Return if she develops fever, worsening sinus pain, or failure to resolve in 2-4 weeks. Provided with printed prescripti on of Augmentin, pt agrees she will only fill if symptoms fail to improve or worsen by 09/25/18. Advised she take probiotics while taking antibiotic s to prevent antibiotic induced diarrhea or yeast infection. [id number] Xochilt LITTLE, [facility], OFFICE [address] [place] [address] 07/21/2019 14:26:21 07/24/2019 12:57:17 Acute upper respiratory infection 23701402 J06.9 H&P consistent with viral URI. Proair 2 puffs every 4 hours as needed for cough/whee ze. Mucinex for chest congestion . Rapid strep negative. Will send for culture and check for mono as faint tonsillar exudates were appreciate d. Will also check CXR today as patient never had repeat CXR after PNA treatment and pt reports was asx for PNA at the time of diagnosis. Increase fluids and rest. Tylenol (not to exceed 3g/day) as needed for headache, pain, fever. Second generation antihistam ine like cetirizine or loratidine . Saline nasal spray. Salt water gargles. Humidified air. Call if symptoms worsen in 3-5 days, or with high fever over 100.4 degrees F. Return at scheduled in Dec for wellness visit with PCP or sooner if symptoms persist, worsen. Wheezing 27254570 R06.2 History of pneumonia 161 284672 Z87.01 Acute pharyngitis 163116 003 J02.9 [id number] Bessie Yoo MD FP, [facility], OFFICE [address] [place] [address] 6 09/05/2019 14:33:27 09/06/2019 11:23:50 Counseling 777965066 Z71.9 Allergic rhinitis 141209 04 J30.9 Active or passive immunization 594751580 Z23 Adult heal th examination 355110703 Z00.00 see Risk Assessment and Lifestyle Change Counseling section above Depression screening 171 038063 Z13.89 depression screening tool administer ed, entered into emr, scored and discussed, time greater than 7.5 minutes. Negative screening reviewed with patient. [id number] Benito Bates MD , [facility], OFFICE [address] [place] [address] 11/03/2019 14:09:02 11/03/2019 14:39:16 Strain of neck muscle 274491415 S16.1XXA [id number] Bessie Yoo MD , [facility], OFFICE [address] [place] [address] 6 11/07/2019 16:48:41 11/08/2019 15:55:58 Paresthesia of upper limb 13865648 R20.2 IRASEMA:11/07/19 20:Referra l sent to physiatry for imaging per discussion with JF.Pt. already has [place] [facility] [place]. [id number] Xochilt Avilez , [facility], OFFICE [address] [place] [phone] 6 11/10/2019 09:38:48 11/10/2019 12:12:11 Acute upper respiratory infection 97304553 J06.9 Take ibuprofen 400 mg or acetaminop hen 650 mg every 6 hours as needed for aches or headache and for fever. You can use a Neti pot for nasal congestion or sinus pain/press ure. Elderberry extract and Umcka are herbal remedies that have been shown to reduce length of flu-like symptoms. Gargling with salt water can help your immune system fight off the sore throat. Mix 1/2 teaspoon of salt with 8 oz warm water, gargle for 20-30 secs, and spit out the liquid. Repeat twice daily. Use Sugar free lozenges can help with a sore throat. Wash your hands frequently . Symptoms may worsen for the first 7-10 days before they improve For high fever (>101) for more than 3 days, worsening shortness of breath, cough productive of rust-color ed mucus (not dark yellow), or symptoms unchanged at two weeks, come back in for reassessme nt (urgent care available in [place] office Sat 9-4 and Wednesday 9-12 by appointmen t - call after 8AM for appt.) Dry cough can last for up to six weeks. - flu test negative today [id number] Benito Bates MD , [facility], OFF[address] [place] [address] 11/12/2019 10:31:59 11/12/2019 11:21:44 Acute upper respiratory infection 12163258 J06.9 Does not seem like pneumonia. Rec: if much better tonight and nl tomorrow can work otherwise out of work . That would make 3 d out and would need a note for and 11/13. If no better tomorrow recommende d that they off, worse recommend x-ray. I don't think an x-ray is indicated today with a normal oxygen, no fever and no productive sputum. Darrynitussin DM [id number] Xochilt Avilez , [facility], OFFICE [address] [place] [address] 12/08/2019 14:40:51 12/08/2019 15:35:41 Dysuria 99703162 R30.9 Frequency. Will check culture. Fatigue 24451500 R53.83 Will test additional labwork (already had thyroid done). Paresthesi a of lower extremity 608306374 R20.2 Will get labwork and plan on f/u depending on results Abdominal discomfort 433 65688 R10.9 Suprapubic abdominal pain. Unclear source, ?muscular tension. Will get urine culture. If this persists, would want to do further workup with pelvic ultrasound [id number] Alberto Linda MD Endocrino jane, [facility] [address] [place] [address] 12/14/2019 09:50:03 12/14/2019 10:43:19 Hypothyroidism 41097370 E03.9 On 112TSH= 4.29 (12/21); was 3.34 (07/22); was 2.08 (08/21) Clinically euthyroid. Want to follow carefully since gradually seems to be creeping up. New Rx in March after next labs (has enough till then) Interested in . Reviewed issues related to changes in binding proteins (stimulate d by estrogen) and likely need for dose adjustment s.Issue is not only her but reality that thyroid doesn't develop until after 11-12 weeks. Will have low threshold for her to have some extra T4 on board. [id number] Xochilt Avilez , [facility], OFFICE [address] [place] [address] 6 02/07/2020 15:20:29 02/08/2020 15:22:21 Tick bite 60551299 W57.XXXA - tick on for 4-5 hours max, does not need antibiotic s- can apply topical steroid or topical benadryl to help with itch- return to office if not improving, or if you develop fever, or bullseye rash [id number] Bessie Yoo MD , [facility], OFFICE [address] [place] [address] 03/12/2020 08:59:36 03/13/2020 12:47:51 Cervical radiculopathy 32137766 M54.12 [id number] Benito Bates MD , [facility], OFFICE [address] [place] [address] 6 04/24/2020 10:46:42 04/25/2020 14:42:45 Suspected COVID-19 525845281 Z03.515 [id number] Alberto Linda MD Endocrino logy, [address] [address] 07/25/2020 07:45:47 07/25/2020 13:30:46 Hypothyroidism 28761425 E03.9 On 112TSH= 3.47 (05/23); was 4.29 (12/21); was 3.34 (07/22); was 2.08 (08/21) Clinically euthyroid. Want to follow carefully since she is trying for . Discussed taking an extra pill per week as soon as she finds out if but also want to get immediate TFTs then. [id number] Benito Bates MD , [facility], OFFICE [address] [place] [address] 12/27/2020 15:45:27 12/30/2020 11:49:14 Urinary tract infectious disease 55627735 N39.0 Patient instructed to push fluids, to follow up for persistent or worsening symptoms or fever or back pain. Screening for disorder 929622930 Z11.59 [id number] Alberto Linda MD Endocrino logmaureen, [address] [address] 11/27/2021 09:42:12 11/27/2021 11:05:00 Hypothyroidism 25322674 E03.9 On 112 x 7.5/7; increased from daily when TSH was 4.092. TSH= 0.55 (11/25); was 0.48 (02/21); was 4.092 (08/23); was 3.47 (05/23); was 4.29 (12/21); was 3.47 (05/23); was 4.29 (12/21); was 3.34 (07/22); was 2.08 (08/21) Has noted brief episodes of increased HR at night. Also some hair thinning (but thinning is in family).Is at point where leaving to fate- if it happens . Is better lately about having time between pill and bkfst in AM.Given borderline low TSH and borderline high ft4, will drop back to 112 daily and follow labs q 3 months. If TFTs remain stable, hope to be able to send her back to PCP If she does become , have discussed taking an extra pill per week as soon as she finds out if but also want to get immediate TFTs then. [id number] Debbi Griffin, OD [facility], [address] [phone] 10/06/2022 13:30:07 10/06/2022 14:37:43 Myopia 72033960 H52.13 RTC 1-2 yrs CEE or prn Ophthalmic examination and evaluation 87976085 Z01.00 can use systane for dry eye and pataday 0.7% for itch. Health Concerns Section Related Observation LastModified by Organization Detai ls LastModified Time None Recorded Concern Status LastModified by Organization Details LastModified Time None Recorded Advance Directives Directive None Recorded Payers Insurance Date Sequence Insurance Name Policy Number Policy Simental Covered Member ID Simental Member ID Guarantor Name 06/14/2020 1 [facility] Edilia Armstrong [id number] Edilia Armstrong 02/08/2015 1 [facility] [id number] Singh Armstrong [id number] Edilia Armstrong 03/09/2018 1 *SELF PAY* Patti Armstrong 06/14/2020 1 [employer] (POS) [id number] Edilia Armstrong [id number] Edilia Armstrong 07/29/2015 1 [place] [id number] Singh Armstrong [id number] Edilia Armstrong 10/12/2022 1 [employer] [place] [id number] Edilia Armstrong [id number] Edilia Armsrtong 06/14/2020 1 [facility] [id number] Edilia Armstrong [id number] Edilia Armstrong 08/01/2015 1 *SELF PAY* Patti Armstrong Notes Date Note Type Note Provider Name and Address Organization Details Recorded Time 04/24/2020 text/html [facility] using [employer] in lieu of in-person visit due to the Covid 19 pandemic. Patient was notified that the provider location is home office. Patient location is home. During the visit the patient's medical history and medical record are reviewed. The patient is notified to call our office for worsening or urgent symptoms, and to schedule an in person visit if needed. Has allergy sx. 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 Benito Bates MD [address] [place] [address], [phone], [facility] 04/24/2020 18:28:42 07/25/2020 text/html ThyroidReported bypatient.Previous Evaluation:TSH: (3.47 (05/23); was 4.29 (12/21); was 3.34 (07/22); was 2.08 (08/21)); free T4: (1.49 (05/23); was 1.69 (12/21)) Treatment:generic, dose: 112 mcg; Takesin AM at 6AM coffee right away (milk). bkfst is 60 minutes later. Constitutional:no cold intolerance; no heat intolerance; no weight loss; no weight gain Eyes:no double vision; no dry eyes; No blurry vision Neck:no difficulty swallowing; no voice changes; no masses Heart:no rapid heart rate; no palpitations; no chest pain; no tightness or pressure GI:no constipation; no diarrhea :normal menstrual periods Neurological:no tremor; no anxiety; no insomnia (worse before due to neck.)Notes:Energy is OK. Skin is dry (chronic)Hair: OK lately. Little bit.Nails: slightly brittle- no recent change PCP Viele Follow up for hypothyroidism (previous [facility])Recent injury with herniated disc C6-7 (extrusion with C8 root).Doing PT and slowly improving STill trying for ROS: No fevers or chills.No severe h/a.No cough or SOB.No n/v or abdominal pain.No muscle pains. No cramping. Neck sx. No nocturia. No polyuria. No polydipsia.No dizziness with standing in AM. No bruises, itching or rashes. Alberto Linda MD [address] [place] [address], [phone], [facility] [place] 07/25/2020 11:07:09 12/27/2020 text/html Dysuria urinary symptomsReported bypatient.Associated Symptoms:No blood in the urine; No fever; No flank pain; No rash on genitals;Burning on urination;Urinary frequency;Pressure on urination; Vaginal itching or burning;Abdominal Pain(discomfort)Notes :UTI? , feels similiar to prev. No consistent, feels uncomfortable. Feels urgency and dribbling.- [id number] symptomsstarted 3wks, pt felt odd. symptoms worsened this week.burning, frequent urination, some abdomin pain. no fever or blood in urination. Time for intake: 7 minutes. Benito Bates MD [address] [place], [phone], [facility] 12/29/2020 22:00:08 11/27/2021 text/html PCP: Elizabeth ALEXIS. Follow up for hypothyroidism (previous [facility]).11/25: Herniated disc (extrusion C8 with tingling in 5th finger). MRI now shows improvement.2020: Injury with herniated disc C6-7 (extrusion with C8 root). ROS:No fevers or chills.No severe h/a. PMS.No cough or SOB. No loss of taste/smell.No n/v or abdominal pain.No muscle pains. No cramping. Neck sx.No nocturia. No polyuria. No polydipsia.No dizziness with standing in AM.No bruises, itching or rashes. Alberto Linda MD [address] [place] [address], [phone], [facility] 11/27/2021 10:59:37 11/27/2021 text/html ThyroidReported bypatient.Previous Evaluation:TSH: (0.55 (11/25); was 0.48 (02/21); was 4.092 (08/23); was 3.47 (05/23); was 4.29 (12/21); was 3.34 (07/22); was 2.08 (08/21)); free T4: (1.53 (11/25); was 1.32 (521); 1.62 (08/23); was 1.49 (05/23); was 1.69 (12/21)) Treatment:generic, dose: 112 mcg (x7.5/7; was daily.); Takes in AM at 6AM: better about waiting (50 minutes) for coffee right away (milk). Constitutional:no cold intolerance; no heat intolerance; no weight loss; no weight gain Eyes:dry eyes; No blurry vision Neck:no difficulty swallowing; no masses Heart:no rapid heart rate; no palpitations; no chest pain; no tightness or pressure; HR seble bit faster. Occ racing during night- it wakes her. Less than a minute. 1-2x a month. GI:no constipation; no diarrhea :normal menstrual periods (more or less); Not clear about issues. Leaving it up to fate. Neurological:no tremor; no anxiety; no insomnia (worse before due to neck.)Notes:Energy is OK. Skin is dry (chronic).Hair: OK lately. slightly thinner.Nails: slightly brittle- no recent change Alberto Linda MD [address] [place] [address], [phone], [facility] [place] 11/27/2021 10:59:37 10/06/2022 text/html Comprehensive Ey e ExamReported bypatient.Quality:4 year exam; no blurred vision Context:currently wears glasses Modifying factors:wears glasses for distance only Associated Symptoms:no redness; no itching; no floaters;dryness Debbi Griffin OD [address] [place] [address], [phone], [facility] 10/06/2022 14:38:19 OBGyn Episode No OBEpisode recorded.
[2025-03-21 08:39] LABS: Alanine Aminotransferase 19 U/L (0-31); Albumin Level 4.6 g/dL (3.5-5.0); Alkaline Phosphatase 46 U/L (39-117); Anion Gap 10 (12-20); Aspartate Amino Transferase 25 U/L (5-31); Bilirubin Total 0.7 mg/dL (0.0-1.0); Blood Urea Nitrogen 14 mg/dL (9-16); Calcium 9.3 mg/dL (8.4-10.2); Carbon Dioxide 26 mmol/L (22-29); Chloride 106 mmol/L (96-108); Estimated Glomerular Filt Rate > 60; Glucose Random 87 mg/dL (60-115); Potassium 3.9 mmol/L (3.3-5.1); Sodium 138 mmol/L (135-145); Total Protein 6.9 g/dL (6.5-8.0)
[2025-03-21 08:43] LABS: Free T4 (Free Thyroxine) 1.56 ng/dL (0.71-1.85); Thyroid Stimulating Hormone 2.04 uIU/mL (0.32-4.0)
[2025-03-22 10:22] LABS: Follicle Stimulating Hormone 5.9 mIU/mL
[2025-03-22 10:45] LABS: Triiodothyronine T3 Free 2.8 pg/mL (2.3-4.2)
[2025-03-22 21:48] LABS: Thyroglobulin Antibodies <1 IU/mL (< or = 1)
[2025-03-23 00:59] LABS: Thyroid Peroxidase Antibodies 426 IU/mL (<9)
[2025-03-27 02:29] LABS: Dihydrotestosterone 5 ng/dL (< OR = 20)
[2025-03-28 15:23] LABS: Progesterone 14.4 ng/mL
[2025-04-02 03:25] LABS: Estradiol Ultra Sensitive 114 pg/mL
[2025-04-04 17:54] LABS: Testosterone, Free 2.6 pg/mL (0.1-6.4); Testosterone, Total 28 ng/dL (2-45)
[2025-04-05 08:48] LABS: Triiodothyronine T3 Reverse 25 ng/dL (8-25)
== END 2025-03-21 07:15 | disposition home or self-care (01) ==
LOC: HO.LAB 07:14
PROVIDERS: PCP Internal Medicine; Visit Provider Internal Medicine
DX: E03.9 Hypothyroidism, unspecified (principal); K76.0 Fatty (change of) liver, not elsewhere classified; N95.9 Unspecified menopausal and perimenopausal disorder
CPT/HCPCS: 36415; 80053; 82642; 82670; 83001; 83002; 84144; 84402; 84403; 84439; 84443; 84481; 84482; 86376; 86800

== ENCOUNTER 2025-09-21 12:42 | Outpatient (REF) | payer OTHER, SELFPAY ==
--- NOTE | ~2025-09-21 | MM_ITS ---
EXAMINATION: MM SCREENING DIGITAL BREAST TOMOSYNTHESIS, BILATERAL CLINICAL INFORMATION: Screening. Asymptomatic. COMPARISON: Mammography: Comparison is made with available priors TECHNIQUE: Digital breast mammography with tomosynthesis is performed in both the craniocaudal and mediolateral oblique views along with computer-aided detection (CAD). FINDINGS: The breasts are heterogeneously dense, which may obscure small masses. There are no significant masses, abnormal calcifications, or other abnormalities. MM/MM tomosynthesis screening BI IMPRESSION: No mammographic evidence of malignancy. ASSESSMENT: BI-RADS Category 1: Negative RECOMMENDATION: Routine annual mammography screening. 1 year F/U This examination should not preclude the clinical evaluation of a suspicious palpable abnormality. This patient's information was entered into a reminder system with a target due date for their next mammogram. Electronically signed by: Eileen Warren DO 09/21/2025 01:23 PM ERICA
--- OUTSIDE RECORDS SUMMARY | 2025-09-21 14:31 | XMS_ITS | Encounter Summary ---
Author Organization [facility] Address [address] [address] Phone Care Team Providers Care Director [facility] Name Role Phone Malcolm Sequeira MD Primary Care Provider [phone] Alberto Linda MD Unavailable [phone] Reason for Referral * Physical Therapy (Routine) - Closed Specialty Diagnoses / Procedures Referred By Harper coto Referred To Contact Physical Therapy Diagnoses Encounter for rehabilitation Pelvic Floor Procedures Evaluate & Treat System, Provider Not In, [facility] [address] [place] [id number] [place] [address] [address] [place] [address] Phone: tel: Referral ID Status Reason Start Date Expiration Date Visits Re quested Visits Authorized [id number] Closed 01/30/2021 10/03/2021 99 99 Encounter Details Date Type Department Care Team (Latest Contact Info) Description 01/09/2021 Transcribe Orders [facility] [address] [place] [address] [place] [address] System, Provider Not In, [facility] [address] [place] [address] [address] Encounter for rehabilitation (Primary Dx) Social History Tobacco Use Types Packs/Day Years Used Date Smoking Tobacco: Never Assessed Comments Unknown Sex and Gender Information Value Date Recorded Sex Assigned at Female 08/26/2021 10:57 AM EST Legal Sex Female 9:18 PM EDT Gender Identity Female 08/26/2021 10:57 AM EST Sexual Orientation Straight 08/26/2021 10 :57 AM EST documented as of this encounter Plan of Treatment Upcoming Encounters Date Type Department Care Team (Late st Contact Info) Description 05/14/2026 8:00 AM EDT Office Visit [facility] [address] [place] [id number] Malcolm Sequeira MD [address] [place] [address], [address] [place] [address] [email or web address] documented as of this encounter Procedures Procedure Name Priority Date/Time Associated Diagnosis Comments AMB REFERRAL TO [facility] Routine 01/30/2021 11:23 AM EDT Encounter for rehabilitation documented in this encounter Results * Ambulatory referral to [facility] Physical Therapy (01/30/2021 11:23 AM EDT) us Provider Not In System PhD [facility] REFERR[facility] Fin al Result documented in this encounter Visit Diagnoses Diagnosis Encounter for rehabilitation- Primary documented in this encounter Additional Health Concerns Infection Onset Date Last Indicated Resolved Time CoV-Risk 01/14/2023 01/14/2023 01/25/2023 1:21 AM EDT documented as of this encounter Care Teams Director [facility] Relationship Specialty Start Date End Date Malcolm Sequeira MD [address] [place] [address], [address] [place] [address] PCP - General Internal Medicine 12/16/20 Alberto Linda MD [address] [place] [address], [address] [place] [address] Endocrinology 04/23/22 documented as of this encounter Additional Source Comments The information contained in this document represents components of the legal health record. It is not the complete legal health record.[facility]
--- OUTSIDE RECORDS SUMMARY | 2025-09-21 14:32 | XMS_ITS | Clinical Summary ---
Author Organization [facility] Address [address] [employer] [address] [address] Phone Care Team Providers Care Manager Physical Name Role Phone Malcolm Sequeira MD Primary Care Provider [phone] Alberto Linda MD Unavailable [phone] Allergies Active Allergy Reactions Criticality Noted Date Comments Ibuprofen Rash Low 01/15/2021 Sulfa (Sulfonamide Antibiotics) Rash Low 12/04 Medications albuterol 90 mcg/actuation inhaler Inhale 2 puffs into the lungs every 6 (six) hours as needed for wheezing. Active naproxen sodium (ALEVE) 220 MG tabletIndications :Migraine without aura and without status migrainosus, not intractable Take 1 tablet (220 mg total) by mouth every 12 (twelve) hours as needed for pain (specific location in comments). May take 2 tabs if necessary 2 Active therapeutic multivitamin (THERAVITE) liquid Take 5 mL by mouth daily. Active levothyroxine (SYNTHROID, LEVOTHROID) 112 MCG tablet TAKE 1 TABLET BY MOUTH 6 TIMES A WEEK AND TAKE 2 TABLETS BY MOUTH ON WEDNESDAY 96 tablet 2 5 Active MAGNESIUM ORAL Take by mouth. Active fluconazole (DIFLUCAN) 150 MG tablet Take one tablet now and the second tablet in 3 days 2 tablet 5 Active Active Problems Problem Noted Date Diagnosed Date Vulvar irritation 08/24/2025 Assessment & Plan (08/24/2025 4:15 PM EST): Vaginitis panel, GC/CT, ureaplasma, mycoplasma collected Plan trial of Diflucan for presumed yeast infection symptoms Will follow up labs and manage as indicated If no evidence of infection, plan to trial vaginal estrogen vs. Topical steroids Concussion without loss of consciousness 025 Assessment & Plan (07/10/2025 5:25 PM EDT): She is doing much better and can return to work tomorrow. She is hopeful she is going to be able to return to work full-time, but if she needs to reduce her hours for the next couple months that would be reasonable. I filled out [facility] paperwork to reflect this. Tingling of both feet 07/31/2024 Assessment & Plan (07/31/2024 2:30 PM EDT): Bilateral foot tingling, predominantly in the morning, with intermittent episodes throughout the day. Duration varies from a few minutes to longer. No associated weakness or swelling. Also reports intermittent tingling in arms. -Order blood work to check CBC, ferritin, electrolytes, liver function, thyroid function, and B12 levels. -Advise patient to log symptoms and any potential triggers. Raynaud's phenomenon without gangrene 11/03/2023 Assessment & Plan (11/03/2023 3:24 PM EST): Symptoms are mild. If she develops symptoms when out in cold weather, she should go inside to make sure she warms up her feet to reduce the risk of developing frostbite. Seasonal allergic rhinitis due to pollen 023 Assessment & Plan (08/12/2023 2:02 PM EST): Symptoms likely due to nasal congestion which I think is likely allergic. I would like her to try fluticasone nasal spray 1 spray in each nostril twice daily for a couple of days. If this is not helpful she can increase to 2 sprays in each nostril twice daily. If this also fails to help I will start her on prednisone taper. Migraine without aura and wi thout status migrainosus, not intractable 04/23/2022 Assessment & Plan (04/23/2022 10:03 AM EDT): Headaches are consistent with migraines. Try naproxen instead of acetaminophen. If is not helpful, sumatriptan may be helpful as an abortive agent. Irritant dermatitis 04/23/2022 Assessment & Plan (05/02/2024 8:34 AM EDT): Most likely eczematoid, possibly fungal, can try clotrimazole for a week or 2 to see if this helps. If ineffective, continue using triamcinolone as needed. Cervical disc herniation 01/15/2021 Overview (01/15/2021): Right C8 impingement Assessment & Plan (01/15/2021 3:05 PM EDT): She is gradually improving with home exercise program. Continue the same. She should avoid exacerbating factors such as heavy exertion. Acquired hypothyroidism 01/15/2021 Assessment & Plan (05/03/2025 8:31 AM EDT): Chemically clinically euthyroid, continue current dose of levothyroxine. Assessment & Plan (05/02/2024 8:33 AM EDT): Clinically and chemically euthyroid, continue current dose of levothyroxine. Assessment & Plan (04/29/2023 8:18 AM EDT): Likely euthyroid, check TSH and adjust if needed. If in the normal range, needs refill for levothyroxine Assessment & Plan (04/23/2022 10:03 AM EDT): Clinically she is doing well, check TSH and adjust levothyroxine if needed Assessment & Plan (01/15/2021 3:06 PM EDT): Clinically she is doing well. 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 If she like me to take over management of hypothyroidism I would be happy to. Resolved Problems Problem Noted Date Diagnosed Date Resolved Date Acute right-sided low back p ain without sciatica 07/31/2024 05/03/2025 Assessment & Plan (07/31/2024 2:31 PM EDT): Recent onset following a twisting injury. Reports localized pain on the right side with some buttock discomfort, but no radiation down the leg. Likely muscular in nature. Encouraged stretching, heat, ice, antiinflammatories. -Advise patient to monitor symptoms and report any changes. Cervicalgia 07/14/2024 05/03/2025 Assessment & Plan (07/31/2024 2:30 PM EDT): History of old injury. Reports increased instability and pain, particularly during menstrual cycle. -Order X-rays of cervical and thoracic spine to assess for increased degeneration or misalignment. -Continue with planned physical therapy appointment in September. Assessment & Plan (07/14/2024 2:53 PM EDT): History of C6-C7 disc extrusion with C8 involvement, currently experiencing new onset of cervical-thoracic pain and tingling in the 2nd, 3rd, and 4th fingers. No weakness or other neurological deficits noted. -Refer to physical therapy for evaluation and treatment. -Consider thoracic spine x-ray or further imaging of the cervical spine if symptoms worsen, new neurological symptoms develop or no improvement with physical therapy. Hair thinning 07/14/2024 05/03/2025 Assessment & Plan (07/14/2024 2:54 PM EDT): Diffuse hair thinning, possibly related to recent stress. No other symptoms suggestive of hormonal changes or systemic illness. -Reassure that hair should regrow as stress decreases. -Advise to report if hair loss worsens or if new symptoms develop. Swelling of left upper eyelid 07/14/2024 05/03/2025 Assessment & Plan (07/14/2024 2:56 PM EDT): Acute onset of bilateral eyelid swelling, possibly due to an allergic reaction or irritation. No signs of infection or conjunctivitis. -Advise to apply ice pack and take ibuprofen if swelling persists or worsens. -If symptoms worsen or do not improve, consider further evaluation for possible infection. Supraclavicular adenopathy 11/03/2023 0 05/02/2024 Assessment & Plan (11/03/2023 3:23 PM EST): Exam is consistent with supraclavicular adenopathy. We discussed that differential diagnosis which includes malignancy, infection, as well as noninfectious etiologies. Will check labs and ultrasound. If ultrasound confirms presence of adenopathy, likely will need ultrasound-guided FNA. Malodorous urine 11/03/2023 05/03/2025 Assessment & Plan (11/03/2023 3:24 PM EST): Unlikely to be an infection, but could be related to the supraclavicular adenopathy. Will check UA. Unless symptoms worsen, would not pursue any further evaluation. Encounters Date Type Department Care Team Description 08/24/2025 2:20 PM EST Office Visit [facility] [address] [place] [address] [place] [address] Flavia Guerrero MD Vulvar irritation (Primary Dx) 07/10/2025 3:30 PM EDT Office Visit [address] [place] [address] Malcolm Sequeira MD Concussion without loss of consciousness, subsequent encounter (Primary Dx) 07/03/2025 10:00 AM EDT Office Visit [address] [place] [address] Bart Cervantes CNP Injury of head, subsequent encounter (Primary Dx); Strain of neck muscle, subsequent encounter 06/29/[address] [place] [address] Malcolm Sequeira MD Forms & Paperwork 06/27/2025 9:30 AM EDT Office Visit [address] [place] [address] Christa Braswell MD Injury of head, initial encounter (Primary Dx); Strain of neck muscle, initial encounter 06/26/[address] [facility] [address] [place] [address] Malcolm Sequeira MD Concussion (Yellow - concussion mild headache with has neck and back pain said it came from the concussion, and pt feels a little off. ) 06/26/[address] [facility] [address] [facility] [address] [place] [address] Malcolm Sequeira MD Concussion (Yellow, Concussion with mild headache, no other symptoms, just want to be checked out ) from Last 3 Months Immunizations Immunization Administration Dates Next Due COVID-19 (Pre-07/26) Pfizer Vaccine, mRNA, PF 09/18/2021,10/18/2020,09/25/2020 Hepatitis B Adult 06/10/2012 Hepatitis B, unspecified formulation 11/11/2012, 05/13/2012 INFLUENZA, SPLIT VIRUS, TRIVALENT PF 08/02/2024 INFLUENZA, SPLIT VIRUS, TRIV ALENT W/ PRESERVATIVE IM 07/07/2013 Influenza Quadrivalent Prese rvative Free IM 08/05/2023,07/29/2022,07/08/2021,2019,08/01/2019,07/22/2018,09/21/2016,1 ,09/19/2014 Influenza Quadrivalent w/ Preservative IM 08/16/2019,07/30/2017 Influenza, Unspecified Formulation 07/04/2018, Influenza, whole 06/10/2012 MMR 03/08/1984 Td (adult),2 Lf Tetanus Toxo id, PF, Adsorbed 09/05/2019 Td, unspecified formulation 09/03/2008 Tdap 05/02/2024,09/29/2008 Family History Medical History Relation Comments Hyperlipidemia Brother Hypertension Brother Hyperlipidemia Father Hypertension Father Leukemia Father Myasthenia gravis Father Stroke Father Anxiety disorder Mother Gastroparesis Mother Hypothyroidism Mother Thyroid cancer Mother Sloan's thyroiditis Sister Sjogren's syndrome Sister No Known Problems Son Relation Status Comments Brother Alive Father AML dx 2023 Mother Alive Sister Alive Son Alive Social History Tobacco Use Types Packs/Day Years Used Date Smoking Tobacco: Never Smokeless Tobacco: Never Tobacco Cessation:Counseling Given: Not Answered Alcohol Use Standard Drinks/Week Comments Yes 0 (1 standard drink = 0.6 oz pur e alcohol) 3-7 a week Child or Family Care Answer Date Record ed Do you have problems with on e of the following making it difficult for you to work, study, or receive health care? No 05/02/2025 Education Answer Date Recorded Are you interested in help w ith more adult education (for example, completing high school, GED, job training, learning the [place] language, technical skills, or developing parenting skills)? No 05/02/2025 Are you concerned about learning? Not on file 05/02/2025 No 05/02/2025 Yes 05/02/2025 Food Answer Date Recorded Within the past 6 months we worried whether our food would run out before we got money to buy more. Never True 05/02/2025 Within the past 6 months the food we bought just didn't last and we didn't have enough money to get more. Never True Residential Stability Answer Date Recor ded What is your housing situation today? I have lian sing 05/02/2025 How many times have you move d in the past 12 months? Zero (I did not move) 05/02/2025 Paying for Meds Answer Date Recorded Do you have trouble paying for medicines? No 05/02/2025 Paying Utility Bills Answer Date Record ed Do you have trouble paying your heating or elect ricity bill? No 05/02/2025 Transportation Answer Date Recorded Has the lack of transportati on kept you from medical appointments or from getting medications? No 05/02/2025 Unemployment Answer Date Recorded Are you currently unemployed or working on a part-time or temporary basis, and looking for work? No 05/02/2025 Digital Access Answer Date Recorded No 05/02/2025 Yes 05/02/2025 Do you have reliable internet access at home? Ye s 05/02/2025 Do you have a device (e.g., phone, tablet, computer) with a working camera? Yes 05/02/2025 Intimate Partner Violence Answer Date R ecorded Denied Basic Needs Not on file 05/02/2025 In the past 12 months have y ou been in a relationship with a person who hurts, threatens, or tries to control you? No 05/02/2025 Worried food would run out Not on file 05/02 In the past 12 months have y ou been in a relationship with a person who hurts, threatens, or tries to control you? 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 Not on file Not on file Not on file Last Filed Vital Signs Vital Sign Reading Time Taken Comments Blood Pressure 106/68 08/24/2025 2:28 PM EST Pulse 77 07/10/2025 3:32 PM EDT Temperature 36.8 C (98.2 F) 07/10/2025 3:32 PM EDT Respiratory Rate 18 07/31/2024 1:57 PM EDT Oxygen Saturation 99% 07/10/2025 3:32 PM EDT Inhaled Oxygen Concentration - - Weight 59.9 kg (132 lb) 08/24/2025 2:28 PM EST Height 162.6 cm (5' 4 ) 08/24/2025 2:28 PM EST Body Mass Index 22.66 08/24/2025 2:28 PM EST Plan of Treatment Upcoming Encounters Date Type Department Care Team (Late st Contact Info) Description 05/14/2026 8:00 AM EDT Office Visit [facility] [address] [place] [address] [place] [address] Malcolm Sequeira MD [address] [facility], [address] [place] [address] [email or web address] Health Maintenance Due Date Last Done Comments INFLUENZA VACCINE (#1) 2025 , 08/05/2023, 07/29/2022, Additional history exists COVID-19 VACCINE (2024- season) 2025 09/18/2021, 10/18/2020, 09/25/2020 TSH LEVEL 07/31/2025 07/31/2024, 10/06, 04/29/2023, Additional history exists PAP SMEAR 03/31/2026 03/31/2023 DEPRESSION SCREENING 05/02/2026 05/02/2025 MAMMOGRAM 08/23/2026 08/23/2024, 08/10/2023 Adult Td,Tdap Booster 05/02/2034 05/02/2024 , 09/05/2019, 09/29/2008, Additional history exists HEPATITIS C SCREENING Completed 04/23/2022 SMOKING STATUS SCREENING (Once After 26 Yrs) Completed 07/10/2025 HEPATITIS A VACCINES Aged Out No long er eligible based on patient's age to complete this topic HIB VACCINES Aged Out No longer eligi ble based on patient's age to complete this topic MENINGOCOCCAL VACCINES (ACWY) Aged Out No longer eligible based on patient's age to complete this topic MENINGOCOCCAL VACCINES (B) Aged Out N o longer eligible based on patient's age to complete this topic PNEUMOCOCCAL VACCINES (0-49 years) Aged Out No longer eligible based on patient's age to complete this topic Medical Devices Not on file Procedures Procedure Name Priority Date/Time Associated Diagnosis Comments UREAPLASMA PCR Routine 08/24/2025 2:54 PM EST Vulvar irritation MYCOPLASMA HOMINIS PCR Routine 08/24/2025 2:54 PM EST Vulvar irritation CHLAMYDIA TRACHOMATIS AND NEISSERIA GONORRHOEAE NUCLEIC ACID DETECTION Routine 08/24/2025 2:54 PM EST Vulvar irritation VAGINITIS/VAGINOSIS SCREEN (BD AFFIRM) Routine 08/24/2025 2:54 PM EST Vulvar irritation HM MAMMOGRAPHY Routine 08/23/2024 4:25 PM EST TSH WITH REFLEX Routine 07/31/2024 2:28 PM EDT Acquired hypothyroidism PAP TEST Routine 03/31/2023 12:00 AM EDT HEPATITIS C ANTIBODY, QUALITATIVE Routine 04/23/2022 9:43 AM EDT Need for hepatitis C screening test from Last 3 Months or Most Recently Relevant to Health Maintenance Results * Vaginitis/Vaginosis Screen (08/24/2025 2:54 PM EST) Bacterial Vaginosis (BV) Not Detected Not Detected 08/24/2025 7:27 PM EST [facility] Mis group Not Detected Not Detected 025 7:27 PM EST [facility] Mis glabrata-krusei Not Detected Not Detected 08/24/2025 7:27 PM EST [facility] Trichomonas vaginalis Not Detected Not Detected 08/24/2025 7:27 PM [facility] Swab (Vagina) Non-Blood Collection / Unknown 08/24/2025 2:54 PM EST 08/24/2025 2:54 PM EST Flavia Guerrero MD LAB GENERAL OR DERABLES Final Result [facility] [address] [place] [address] * Chlamydia trachomatis and Neisseria gonorrhoeae Nucleic Acid Amplification (08/24/2025 2:54 PM EST) N.gonorrhoeae, AMP Not Detected Not Detected 08/27/2025 9:46 AM [facility] Comment:This test is not rec ommended for evaluation of suspected sexual abuse or for other medico-legal indications This assay should not be used to determine therapeutic success as DNA may persist after appropriate antimicrobial therapy. This test has not been evaluated in patients younger than 14 years of age. Penile and Urethral specimen are not approved specimen types, interpret results with caution. C.trachomatis, AMP Not Detected Not Detected 08/27/2025 9:46 AM [facility] Comment:This test is not rec ommended for evaluation of suspected sexual abuse or for other medico-legal indications This assay should not be used to determine therapeutic success as DNA may persist after appropriate antimicrobial therapy. This test has not been evaluated in patients younger than 14 years of age. Penile and Urethral specimen are not approved specimen types, interpret results with caution. Swab (Cervix) Non-Blood Collection / Unknown 08/24/2025 2:54 PM EST 08/24/2025 2:54 PM EST Narrative [facility] - 08/27/2025 9:[address]/NG Assay performance has not been evaluated on patients less than 14 years of age Flavia Guerrero MD LAB GENERAL OR DERABLES Final Result [facility] [address] [place] [address] * Ureaplasma, PCR (08/24/2025 2:54 PM EST) Specimen source Vagina 7:28 PM EST [facility] Ureaplasma urealyticum PCR Negative Not Applicable 08/28/2025 7:28 PM EST [facility] Ureaplasma parvum PCR Negative Not Applicable 08/28/2025 7:28 PM EST [facility] Comment: ADDITIONAL INFORMATION This test was developed and its performance characteristics determined by [facility] in a manner consistent with CLIA requirements. This test has not been cleared or approved by the U.S. Food and Drug Administration. Swab (Vagina) Non-Blood Collection / Unknown 08/24/2025 2:54 PM EST 08/24/2025 2:54 PM EST Flavia Guerrero MD LAB GENERAL OR DERABLES Final Result [facility]TER[facility]) [facility] [address] [place] [address], [facility] [phone] * Mycoplasma hominis, PCR (08/24/2025 2:54 PM EST) Specimen source Vagina 7:25 PM EST [facility] Mycoplasma hominis PCR Negative Not Applicable 08/28/2025 7:25 PM EST [facility] Comment: ADDITIONAL INFORMATION This test was developed and its performance characteristics determined by [facility] in a manner consistent with CLIA requirements. This test has not been cleared or approved by the U.S. Food and Drug Administration. Swab (Vagina) Non-Blood Collection / Unknown 08/24/2025 2:54 PM EST 08/24/2025 2:54 PM EST us Flavia Guerrero MD LAB GENERAL OR DERABLES Final Result [facility] [address] [address], [facility] [phone] * HM MAMMOGRAPHY FOR RESULT ENTRY ONLY (08/23/2024 4:25 PM EST) us Malcoml Sequeira MD HEALTH MAINTENANCE Edited Result - Final * TSH with reflex (07/31/2024 2:28 PM EDT) TSH 3.29 0.27 - 4.20 uIU/mL [facility] Blood 07/31/2024 2:28 PM EDT 07/31/2024 2:30 PM EDT us Joceline Vallejo [facility] LAB BLOOD BKR ORDERABLES Final Result [facility] [address] [place] [address] * Pap Test (03/31/2023 12:00 AM EDT) 03/31/2023 04/01/2023 8:5 8 AM EDT Narrative SEE NARRATIVE - 04/05/2023 3:17 PM EDT [address] [address] Carpet Binder: Inés Saravia MD [employer] Cytology Report FINAL DIAGNOSIS A. PAP SMEAR (SUREPATH) CE: SPECIMEN ADEQUACY: Satisfactory for evaluation; transformation zone absent/insufficient. INTERPRETATION: NEGATIVE FOR INTRAEPITHELIAL LESION OR MALIGNANCY. Electronically Signed Out By: JEWELL Madrigal(ASCP) The Pap test is a screening test primarily for squamous cancers and precursors and has associated false-negative and false-positive results. New technologies such as liquid-based preparations may decrease but will not eliminate all false-negative results. Regular sampling and follow-up of unexplained clinical signs and symptoms are recommended to minimize false negative results. PROCEDURES/ADDENDA HPV Testing (Requested) Ordered Date: 04/01/2023 A. PAP SMEAR (SUREPATH) CE: Human Papilloma Virus Test NEGATIVE for high-risk Human Papilloma Virus types 16, 18, 45 and the Other high risk probe set (Includes 31, 33, 35, 39, 51, 52, 56, 58, 59, 66, 68) Note: Testing performed by [employer] On[facility] HR-HPV analysis. Clinical correlation is advised. This HPV test was performed at [facility], [address] [place] [address]. This test has been FDA approved for [facility] cervical cytology specimens. The accuracy and precision of this test for all other specimen sources has been verified in the Cytopathology Laboratory of the [facility] and has not been cleared or approved by the U.S. Food and Drug Administration. Clinical correlation is advised. CLINICAL HISTORY Date of Last Menstrual Period: 03-23-2023 Other Clinical Conditions: Screening Pap SPECIMEN SOURCE A: PAP SMEAR (SUREPATH) CE Patient Name: CHRISTA ARMSTRONG : 1980 (Age: 42) Sex: F Institution: [facility] Location: [facility] Date of Collection: 03/31/2023 Date of Reported: 04/05/2023 15:17 Results to: Flavia Herrera us Flavia Guerrero MD CYTOLOGY ORDER KEVIN Final Result SEE NARRATIVE * Hepatitis C antibody, qualitative (04/23/2022 9:43 AM EDT) HCV NON-REACTIV E NON-REACTI VE [facility] Blood 04/23/2022 9:43 AM EDT 04/23/2022 9:48 AM EDT us Malcolm Sequeira MD LAB BLOOD BKR ORDERABLES F inal Result [address] [address] from Last 3 Months or Most Recently Relevant to Health Maintenance Insurance [employer]MIN[employer] Member Subscriber Plan / Payer (Ef fective 2019-Present) Name:Christa Armstrong Relation to Subscriber:Self Name:Christa Armstrong Payer ID:[id number] (NAIC) Type:PPO Address: [place] [id number] [place] [employer] Member Subscriber Plan / Payer (Ef fective 2019-Present) Name:Christa Armstrong Relation to Subscriber:Self Name:Christa Armstrong Payer ID:[id number] (NAIC) Type:PPO Address: [place] [phone] Care Teams Manager Physical Relationship Specialty Start Date End Date Malcolm Sequeira MD [address] [place] [address], [address] [place] [address] PCP - General Internal Medicine 12/16/20 Alberto Linda MD [address] [place] [address], [address] [place] [address] Endocrinology 04/23/22 Additional Source Comments The information contained in this document represents components of the legal health record. It is not the complete legal health record.[facility]
--- OUTSIDE RECORDS SUMMARY | 2025-09-21 14:32 | XMS_ITS | Encounter Summary ---
Author Organization [facility] Address [address] [place] [address] Phone Care Team Providers Care Edm Operator Name Role Phone Malcolm Sequeira MD Primary Care Provider [phone] Alberto Linda MD Unavailable [phone] Reason for Visit * Reason Onset Date Comments Concussion 06/26/2025 Yellow, Concussi on with mild headache, no other symptoms, just want to be checked out Encounter Details Date Type Department Care Team (Late st Contact Info) Description 06/26/2025 Telephone [facility] [address] [place] [address] Malcolm Sequeira MD [address] [facility] [place], [place] [id number] [email or web address] Concussion (Yellow, Concussion with mild headache, no other symptoms, just want to be checked out ) Social History Tobacco Use Types Packs/Day Years Used Date Smoking Tobacco: Never Smokeless Tobacco: Never Alcohol Use Standard Drinks/Week Comments Yes 0 [...] high school, GED, job training, learning the [place] language, technical skills, or developing parenting skills)? [...] file Not on file Not on file documented as of this encounter Plan of Treatment Upcoming Encounters Date Type Department Care Team (Late st Contact Info) Description 05/14/2026 8:00 AM EDT Office Visit [facility] [address] [place] [id number] Malcolm Sequeira MD [address] [place] [address], [address] [place] [address] documented as of this encounter Visit Diagnoses Not on filedocumented in this encounter Additional Health Concerns Assessment Noted Time PHQ-2 Depression Total Score: 0 05/02/20 25 3:29 PM EDT documented as of this encounter Care Teams Edm Operator Relationship Specialty Start Date End Date Malcolm Sequeira MD [address] [place] [address], [address] [place] [address] PCP - General Internal Medicine 12/16/20 Alberto Linda MD [address] [place] [address], [address] [place] [address] Endocrinology 04/23/22 documented as of this encounter Additional Source Comments The information contained in this document represents components of the legal health record. It is not the complete legal health record.[facility]
== END 2025-09-21 12:43 | disposition home or self-care (01) ==
LOC: HO.MAMMO 12:42
PROVIDERS: PCP Internal Medicine; Visit Provider Internal Medicine
DX: Z12.11 Encounter for screening for malignant neoplasm of colon (principal)
CPT/HCPCS: 77063; 77067

== ENCOUNTER → 2025-09-21 12:45 | Outpatient (BNV) | payer OTHER, SELFPAY | PROVIDERS: PCP Internal Medicine; Visit Provider Internal Medicine | DX: Z12.31 Encounter for screening mammogram for malignant neoplasm of breast (principal) | CPT/HCPCS: 77063; 77067 ==